=== PATIENT | male | born 1990 | race Caucasian/White ===

== ENCOUNTER 2019-08-19 13:06 | Emergency (ER) | payer OTHER ==
[~2019-08-19] VITALS: Ht 180.3 cm; Wt 81.6 kg
--- NOTE | 2019-08-19 13:20 | NUR ---
[facility] - [employer] custody - for clearance before booking.
[2019-08-19] MEDS ORDERED: LORAZEPAM 1 MG TABLET PO ONE (13:30)
[2019-08-19] MEDS ORDERED: LORAZEPAM 0.5 MG TABLET ONE (14:04)
[2019-08-19 14:27] VITALS: BP 128/70
--- NOTE | 2019-08-19 14:28 | NUR ---
Patient discharged to [employer] in stable condition. Written and verbal after care instructions given. Patient & [employer] OFF[employer] verbalizes understanding of instruction.
== END 2019-08-19 14:30 ==
LOC: ER 13:12
DX: F41.0 Panic disorder [episodic paroxysmal anxiety] (principal); E11.9 Type 2 diabetes mellitus without complications; Z02.89 Encounter for other administrative examinations

== ENCOUNTER 2022-02-11 14:29 | Inpatient (IN) | payer OTHER ==
[~2022-02-11] VITALS: Ht 172.7 cm; Wt 85.3 kg
--- NOTE | 2022-02-11 14:30 | NUR ---
CARLOS & CLINICAL STATISTICS MANAGER OFFICERS FOR OD, INHALED "FENTANYL" IN HALFWAY PER EMS GIVEN 3 SPRAYS OF NARCAN, PT AAOX3. PT IS A&OX3, ATTACHED TO MONITOR. AWAITING MD CAMPOVERDE.
[2022-02-11 15:03] LABS: BASOPHILS % (AUTO) 0.3 % (0.0-2.0); EOSINOPHILS % (AUTO) 0.3 % (0.0-6.0); HEMATOCRIT 41 % (39-51); HEMOGLOBIN 13.3 g/dL (13.5-17.5); LYMPHOCYTES # (AUTO) 0.9 K/uL (0.8-4.8); MEAN CORPUSCULAR HGB CONC 33 g/dl (31.0-36.0); MEAN CORPUSCULAR VOLUME 89 fL (80-96); MONOCYTES # (AUTO) 0.7 K/uL (0.1-1.30); MONOCYTES % (AUTO) 11.5 % (2.0-12.0); NEUTROPHILS # (AUTO) 4.6 K/uL (1.8-8.9); NEUTROPHILS % (AUTO) 73.9 % (43.0-81.0); PLATELET COUNT (AUTO) 176 K/uL (150-450); RED BLOOD CELL COUNT(AUTO) 4.55 MIL/uL (4.5-6.0); WHITE BLOOD COUNT (AUTO) 6.2 K/uL (4.3-11.0)
[2022-02-11 15:16] LABS: CALCIUM, SERUM 8.7 mg/dL (8.5-10.1); CARBON DIOXIDE 27 mmol/L (21-32); CHLORIDE 103 mmol/L (98-107); CREATININE 1.3 mg/dL (0.6-1.3); GLUCOSE 132 mg/dL (74-106); POTASSIUM 3.8 mmol/L (3.5-5.1); SODIUM SERUM 138 mmol/L (136-145); UREA NITROGEN, BLOOD 16 mg/dL (7-18)
[2022-02-11 15:21] LABS: ALANINE AMINOTRANSFERASE 165 U/L (12-78); ALKALINE PHOSPHATASE 60 U/L (46-116); ASPARTATE AMINOTRANSFERASE 61 U/L (15-37); BILIRUBIN,DIRECT 0.1 mg/dL (0.0-0.2); BILIRUBIN,TOTAL 0.4 mg/dL (0.2-1.0); TOTAL PROTEIN, SERUM 7.2 g/dL (6.4-8.2)
[2022-02-11 15:22] LABS: ACETAMINOPHEN < 0 ug/ml (10-30); ALCOHOL, BLOOD < 3 mg/dL (0-0)
--- NOTE | 2022-02-11 16:09 | NUR ---
SS consult : SS consult requested for OD on possibly Fentanyl. The pt. is a 31 year old male accompanied by [employer] as pt. is in custody. The pt. allegedly inhald Fentanyl while in snf per EMS and was guven narcan 3 times. SW met with pt. at bed side. The pt. is alert & oriented x 33. Pt. stated he does not remember what happened or why he is in the hospital. SW explored pt.'s drug use. pt. denies any drug or alcohol use. The pt. appears drowsy and is unable to provide much history at this time. SW unable to engage in further conversation with pt. because he is very drowsy. Pt. is in relapse phase of change. SW provided MAT resources for opiate use and pt. accepted them: [facility]: [address] [place] [address] Intake hours: 5:45am-9:00am, walk-ins Thursday, Thursday, [facility]: [address] [place] [address] Intake hours: 5:45am-12:30pm, Thursday and [facility]: [address] [place] [address] Intake hours: 8:00am-2:00pm, Thursday through Thursday ADDICTION RESOURCES For Drugs and Alcohol [facility] sober living Referrals For Rehabilitation once sober Address:[address] [place] [address] [facility] [address] [place] [address] Detox/residential [facility] Substance Abuse Helpline ([facility]) Outpatient, residential treatment, recovery support for youth/adults [facility] www.[facility] Teen programs for drug/alcohol education and support Santhosh Thomas Chamisal. Program for adults, sliding scale provides support and education Gertrude [employer] www.Contests4Causes.org [place]; Detox/residential treatment programs; transition to sober living [facility] www.cri-help.org [place]; Outpatient and residential treatment programs; transition to sober living [facility] TEL: [phone] [facility] [place] [facility] Yonatan Ibrahim; Outpatient education and supportive programs for teens and adults [facility] www.[facility] cent[facility].org [place]; Residential treatment and work program for females only [place] www.phouma information technologyxcocoa.MyOutdoorTV.com [place]: Outpatient/residential treatment program for teens and young adults [facility] www.[facility].org [place] Detox, inpatient, outpatient for adults and youth [facility], [facility]. [place]; Outpatient programs and referrals to community residential programs. Alcoholics Anonymous -SFV information and meeting and scheduleswww.aa-intergroup.org Tp-Erqb-Puvsdbq https://al-anon.org/ [place] support groups for family of alcoholics. Marijuana Anonymous www.madistrict6.org -SFV listing of meetings Narcotics Anonymous www.na.org SOBER LIVING RESOURCES [facility] www.soberhousing.net A non-profit agency that provides resources to recovery and sober living homes throughout [facility] Men's Sober Living Homes: A Work in Progress, [facility], [place] [facility] Women's Sober Living Homes: [facility] x [phone], [facility], [place], operated by [facility] Sober Living Homes: [facility] Counseling--Outpatient [facility] [address] [place] [address] [place] [address] (Specializes in in-depth psychotherapy for emotional distress: anxiety, depression, interpersonal conflicts, life transitions, childhood abuse) [facility] [address] [place] [address] (Assist with solving problem marital difficulties, separation & divorce, aging parents, & grief, chronic & terminal illness) [facility] [address] [place] [address] (Deal with loss & grief, anxiety, marital difficulties) Homebound/Mental Health Services [address] [facility], [address] [place] [address] (Provide in-home mental services to people who are incapable of leaving their homes) [facility]eds of the Elderly [facility] [address] [facility] [place] [address] [facility] [address] [place] [address] Mental Health Services [facility] [address] [place] [address] Services: Outpatient therapy for children, teens, young adults, adults, older adults, and families; Psychiatric services, medication support Psychiatric Outpatient Services [facility] Partial Hospitalization and Intensive Outpatient Program (Managed Care and [place] Only)[address] [facility] [phone] [facility] Partial Hospitalization and Outpatient [id number] [facility]. [address] [place], [place] [phone] [facility] Mental Health [place] Clu[address] [facility]. [address] [place], [place] [phone] [facility] Partial Hospitalization and Outpatient [id number] Sheila Montaño, [phone] Crisis and Hotline Telephone Numbers 24-Hour service unless stated [place] Crisis Hotlines: [facility] Mental Health/Crisis Line........[phone] Suicide Prevention Center (24 Hours).......[phone] Suicide Prevention Crisis Center.......823.705.3228 (24 Hours) Assaults Against Women Hotline.........917.489.2297 (24 Hours -- [facility]) Women and Children Crisis Group Home...........[phone] (24 Hours) Child Abuse Hotline............598.660.1765 [facility] Rape Treatment Center (24 Hours)..........[phone] Alcoholics Anonymous (24 Hours)..........[phone] Cocaine Anonymous (24 Hours)............[phone] Narcotics Anonymous (24 Hours)..........[phone] Deya Mccain [facility] [address], [place] [address]
--- NOTE | 2022-02-11 16:50 | NUR ---
WATER PROVIDED TO PATIENT
--- NOTE | 2022-02-11 17:37 | NUR ---
URINE COLLECTED AND SENT TO THE LAB
[2022-02-11 18:17] LABS: BILIRUBIN,URINE NEGATIVE (NEGATIVE); COLOR,URINE YELLOW (YELLOW); LEUKOCYTE ESTERASE ,URINE NEGATIVE (NEGATIVE); NITRITE, URINE NEGATIVE (NEGATIVE); PROTEIN,URINE NEGATIVE (NEGATIVE); UGLUCOSE NEGATIVE (NEGATIVE); UROBILINOGEN,URINE 0.2 EU/dL (0.2)
--- NOTE | 2022-02-11 19:10 | NUR ---
JESSICA ESTABLISHED R BONNIE 20G.
[2022-02-11] MEDS ORDERED: ONDANSETRON HCL/PF 4 MG/2 ML VIAL ONE (19:23)
--- NOTE | 2022-02-11 19:40 | NUR ---
COVID TEST COLLECTED AND SENT
--- NOTE | 2022-02-11 19:55 | NUR ---
PT TAKEN TO CT VIA CHAVEZ
[2022-02-11] MEDS ORDERED: IV NS 0.9% 250 ML BAG IV ONE (20:00)
[2022-02-11] MEDS ORDERED: ONDANSETRON HCL/PF 4 MG/2 ML VIAL IV ONE (20:00)
[2022-02-11] MEDS ORDERED: NALOXONE PREFILLED SYRINGE 2 MG/2 ML SYRINGE IV ONE (20:00)
--- NOTE | 2022-02-11 20:01 | NUR ---
PT RETURNED TO ER BED [address]
--- NOTE | 2022-02-11 21:25 | NUR ---
MRSA SWAB COLLECTED AND SENT TO LAB. PATIENT'S BELONGINGS LIST DONE.
--- NOTE | 2022-02-11 22:16 | NUR ---
REPORT GIVEN TO BAO ON THIRD FLOOR
--- NOTE | 2022-02-11 22:49 | NUR ---
TRANSFERRING PATIENT TO [facility] PER ACLS PROTOCOL.
[2022-02-11] MEDS: PANTOPRAZOLE 40 MG VIAL IV SCH (23:00)
[2022-02-11] MEDS: ENOXAPARIN SODIUM 40 MG/0.4 ML DISP.SYRIN SQ SCH (23:00)
[2022-02-11] MEDS ORDERED: LORAZEPAM INJ 2 MG/ML VIAL IV PRN (23:00)
[2022-02-11] MEDS ORDERED: ONDANSETRON HCL/PF 4 MG/2 ML VIAL IVP PRN (23:00)
[2022-02-11] MEDS ORDERED: NALOXONE HCL 0.4 MG/ML AMPUL IV PRN (23:00)
--- NOTE | 2022-02-11 23:23 | NUR ---
RN OPENING NOTES PT ARRIVED VIA GURNEY ACCOMPANIED BY NURSE, EMT, AND 2 KIDS ACTIVITIES COACH DEPUTIES AT APPROXIMATELY 2300. AOx4, ABLE TO MAKE NEEDS KNOWN. ON NC 3LPM AND TOLERATING WELL. NO SOB NOTED. NO S/SX OF RESPIRATORY DISTRESS NOTED. TELE MONITOR DETECTS SR WITH RATE OF 100. IV ACCESS IN RAC #20G RUNNING NS @150 ML/HR. SAFETY PRECAUTIONS IN PLACE: BED IN LOWEST, LOCKED POSITION, SIDERAILS UPx2, AND BRAKES ON. WILL CONTINUE TO MONITOR.
[2022-02-11 23:37] VITALS: BP 117/64
[2022-02-12] MEDS: IV NS 0.9% 1,000 ML IV PRN ×3 (00:47→18:06)
[2022-02-12 04:00] VITALS: BP 110/61
[2022-02-12 06:33] LABS: BASOPHILS % (AUTO) 0.2 % (0.0-2.0); EOSINOPHILS % (AUTO) 0.2 % (0.0-6.0); HEMATOCRIT 38 % (39-51); HEMOGLOBIN 12.6 g/dL (13.5-17.5); LYMPHOCYTES # (AUTO) 2.4 K/uL (0.8-4.8); LYMPHOCYTES % (AUTO) 31.9 % (20.0-44.0); MEAN CORPUSCULAR HGB CONC 33 g/dl (31.0-36.0); MEAN CORPUSCULAR VOLUME 89 fL (80-96); MONOCYTES # (AUTO) 1.1 K/uL (0.1-1.30); NEUTROPHILS % (AUTO) 52.7 % (43.0-81.0); PLATELET COUNT (AUTO) 179 K/uL (150-450); RED BLOOD CELL COUNT(AUTO) 4.29 MIL/uL (4.5-6.0); WHITE BLOOD COUNT (AUTO) 7.6 K/uL (4.3-11.0)
[2022-02-12 07:08] LABS: CALCIUM, SERUM 8.3 mg/dL (8.5-10.1); CREATININE 1.3 mg/dL (0.6-1.3); MAGNESIUM 1.7 mg/dL (1.8-2.4); PHOSPHORUS 2.1 mg/dL (2.5-4.9)
--- NOTE | 2022-02-12 07:25 | NUR ---
RN OPENING NOTES RECEIVED PATIENT IN BED, ASLEEP, AWAKENS TO TACTILE STIMULI. AOx4, VERY LETHARGIC BUT ABLE TO MAKE NEEDS KNOWN. 2 SHERIFS AT BEDSIDE MONITORING PATIENT. ON 3L OF O2 VIA NC WITH NO SOB OR RESP DISTRESS NOTED. ON VIBRATING SCREED OPERATOR READING SINUS TACHY 110 AT THIS TIME. IV ACCESS IN RAC G#20 RUNNING NS @150 ML/HR. SAFETY AND ASPIRATION PRECAUTIONS IN PLACE: BED IN LOWEST, LOCKED POSITION, SIDERAILS UPx2, AND BRAKES ON. WILL CONTINUE TO MONITOR PATIENT
--- NOTE | 2022-02-12 07:31 | NUR ---
RN CLOSING NOTES PT IN BED, ASLEEP, AWAKENS TO TACTILE STIMULI. AOx4, ABLE TO MAKE NEEDS KNOWN. ON NC 3LPM AND TOLERATING WELL. NO SOB NOTED. NO S/SX OF RESPIRATORY DISTRESS NOTED. TELE MONITOR DETECTS SR WITH RATE OF 100. IV ACCESS IN RAC #20G RUNNING NS @150 ML/HR. ALL ORDERS CARRIED OUT. ALL NEEDS MET. PT KEPT CLEAN AND DRY. SAFETY PRECAUTIONS IN PLACE: BED IN LOWEST, LOCKED POSITION, SIDERAILS UPx2, AND BRAKES ON. WILL ENDORSE TO ONCOMING SHIFT FOR PAUL.
[2022-02-12] MEDS: PANTOPRAZOLE 40 MG VIAL IV SCH (08:23)
[2022-02-12] MEDS: ACETAMINOPHEN 325 MG TABLET PO PRN ×2 (09:49→18:28)
[2022-02-12] MEDS ORDERED: Magnesium 1GM/D5W 100ML PREMIX 100 ML IV SCH (10:00)
[2022-02-12] MEDS ORDERED: Sodium Phosphate 30 MMOL in IV NS 0.9% 250 ML IV SCH (12:00)
[2022-02-12 16:17] VITALS: BP 90/47
--- NOTE | 2022-02-12 18:43 | NUR ---
RN NOTES PATIENT AWAKE IN BED WITH TWO SHERIFS AT BEDSIDE. A/O X3. PROGRESSIVELY MORE AWAKE THROUGH OUT THE SHIFT. TEMP MAX 101.0 TODAY WITH TYLENOL GIVEN AND RESPONDED WELL. NO S/S OF RESP DISTRESS NOTED THROUGH OUT SHIFT. ALL MEDS GIVEN AND ORDERS CARRIED OUT. SAFETY PRECAUTIONS MAINTAINED. WILL ENDORSE TO THE WELDING SUPERVISOR NURSE FOR PAUL
[2022-02-12 20:00] VITALS: BP 127/67
--- NOTE | 2022-02-12 20:28 | NUR ---
RN OPENING NOTES RECEIVED PT IN BED, ASLEEP, AWAKENS TO VERBAL STIMULI WITH BUILDING COORDINATOR AT BEDSIDE. AOx4. ON NC 3LPM AND TOLERATING WELL. NO SOB NOTED. NO S/SX OF RESPIRATORY DISTRESS NOTED. TELE MONITOR DETECTS SINUS RHYTHM WITH RATE OF 100. IV ACCESS IN RAC #20 RUNNING NS @ 150 ML/HR. SAFETY PRECAUTIONS IN PLACE: BED IN LOWEST, LOCKED POSITION, SIDERAILS UPx2, AND BRAKES ON. TABLE AND CALL LIGHT WITHIN REACH. WILL CONTINUE TO MONITOR.
[2022-02-12] MEDS: ENOXAPARIN SODIUM 40 MG/0.4 ML DISP.SYRIN SQ SCH (22:00)
[2022-02-13] VITALS: BP 100/46
[2022-02-13] MEDS: IV NS 0.9% 1,000 ML IV PRN (02:42)
[2022-02-13 04:00] VITALS: BP 107/69
[2022-02-13] MEDS: ACETAMINOPHEN 325 MG TABLET PO PRN (05:06)
--- NOTE | 2022-02-13 05:09 | NUR ---
RN NOTES ADMINISTERED TYLENOL FOR HEADACHE.
[2022-02-13 06:22] LABS: BASOPHILS % (AUTO) 0.2 % (0.0-2.0); EOSINOPHILS % (AUTO) 2.6 % (0.0-6.0); HEMATOCRIT 36 % (39-51); HEMOGLOBIN 12.2 g/dL (13.5-17.5); LYMPHOCYTES # (AUTO) 2.4 K/uL (0.8-4.8); LYMPHOCYTES % (AUTO) 43.4 % (20.0-44.0); MEAN CORPUSCULAR HGB CONC 34 g/dl (31.0-36.0); MEAN CORPUSCULAR VOLUME 88 fL (80-96); MONOCYTES % (AUTO) 18.8 % (2.0-12.0); NEUTROPHILS # (AUTO) 1.9 K/uL (1.8-8.9); PLATELET COUNT (AUTO) 142 K/uL (150-450); WHITE BLOOD COUNT (AUTO) 5.4 K/uL (4.3-11.0)
--- NOTE | 2022-02-13 06:47 | NUR ---
RN CLOSING NOTES PT IN BED, ASLEEP, AWAKENS TO VERBAL STIMULI WITH PROFILE GRINDER AT BEDSIDE. AOx4. ON NC 3LPM AND TOLERATING WELL. NO SOB NOTED. NO S/SX OF RESPIRATORY DISTRESS NOTED. TELE MONITOR DETECTS SINUS RHYTHM WITH RATE OF 76. IV ACCESS IN RAC #20 RUNNING NS @ 150 ML/HR. ALL ORDERS CARRIED OUT. ALL NEEDS MET. PT KEPT CLEAN AND DRY. SAFETY PRECAUTIONS IN PLACE: BED IN LOWEST, LOCKED POSITION, SIDERAILS UPx2, AND BRAKES ON. TABLE AND CALL LIGHT WITHIN REACH. WILL ENDORSE TO ONCOMING SHIFT FOR PAUL.
--- NOTE | 2022-02-13 07:47 | NUR ---
RN OPENING NOTE- PT IN BED, ASLEEP, AWAKENS TO VERBAL STIMULI WITH PULL THROUGH HOOKER AT BEDSIDE. AOx4. ON NC 3LPM AND TOLERATING WELL. NO SOB NOTED. NO S/SX OF RESPIRATORY DISTRESS NOTED. TELE MONITOR DETECTS SINUS RHYTHM WITH RATE OF 96. IV ACCESS IN RAC #20 RUNNING NS @ 150 ML/HR. SAFETY PRECAUTIONS IN PLACE: BED IN LOWEST, LOCKED POSITION, SIDERAILS UPx2, AND BRAKES ON. TABLE AND CALL LIGHT WITHIN REACH. WILL CONTINUE TO MONITOR / ASSIST
[2022-02-13 08:00] VITALS: BP 100/61
[2022-02-13] MEDS: PANTOPRAZOLE 40 MG VIAL IV SCH (08:12)
[2022-02-13 09:55] LABS: CALCIUM, SERUM 8.3 mg/dL (8.5-10.1); CREATININE 0.9 mg/dL (0.6-1.3)
--- NOTE | 2022-02-13 11:04 | NUR ---
TIRE REPAIRER NOTE- PT DC AT THIS TIME INTO [employer] CUSTODY. VS STABLE, LABS WNL, DC INSTRUXCTIONS GIVEN / UNDERSTOOD. PT MEDICALLY CLEARED TO BOOK INTO CUSTODY. DOCUMENTATION PROVIDED TO [employer] DEPT STAFF AT BEDSIDE. ID WRISTBAND REMOVED, IV SITE DC'D. ESCORTED OFF UNIT BY [employer] DEPT STAFF.
[2022-02-13 13:42] LABS: LYMPHOCYTES % (MANUAL) 50 % (16-48); MONOCYTES % (MANUAL) 14 % (0-11.0); NEUTROPHILS % (MANUAL) 36 (42-76)
== END 2022-02-13 11:15 | DRG 917 ==
LOC: ER 14:33 → TELE 21:21
PROVIDERS: ADMIT Family Medicine; ATTEND Family Medicine
DX: T40.2X1A Poisoning by other opioids, accidental (unintentional), initial encounter (principal); G92.9 Unspecified toxic encephalopathy; Y92.149 Unspecified place in prison as the place of occurrence of the external cause; Z20.822 Contact with and (suspected) exposure to COVID-19; F19.10 Other psychoactive substance abuse, uncomplicated
CPT/HCPCS: 36415; 70450-TC; 80048-TC; 80076-TC; 83735-TC; 84100-TC; 85025-TC; 87081-TC; 94799-TC; A9563; C9113; C9803; G0378; G0480; J1650; J2405; J3475; J7030; J7050